=== PATIENT | male | born 1950 | race Caucasian/White ===

== ENCOUNTER 2021-11-17 08:38 | Outpatient (CLI) | payer MEDICARE, OTHER ==
--- NOTE | 2021-11-17 09:03 | XRAY Report ---
PROCEDURE: Hand 3 View LT INDICATIONS: PAIN IN LEFT HAND TECHNIQUE: 3 views of the hand(s) acquired. COMPARISON: None. FINDINGS: BONES: No acute, displaced fracture or dislocation. The carpal bones are normally aligned. Joint spac e loss with osteophytosis about the fifth proximal interphalangeal joint. SOFT TISSUES: No focal abnormality. IMPRESSION: 1.No acute osseous abnormality. Reviewed by: Luis Enrique Brennan MD on 11/17/2021 9:01 AM PDT Approved by: Luis Enrique Brennan MD on 11/17/2021 9:01 AM PDT Station ID: [id number]
== END 2021-11-17 08:39 | disposition home or self-care (01) ==
LOC: DI.S 08:38
PROVIDERS: ATTEND Physician Assistant
DX: M79.642 Pain in left hand (principal)